=== PATIENT | female | born 1980 | race Caucasian/White ===

== ENCOUNTER → 2018-01-07 | Outpatient (CLI) | payer MEDICAID | LOC: FCPNEURO 21:00 | PROVIDERS: ATTEND Student in an Organized Health Care Education/Training Program | DX: G47.10 Hypersomnia, unspecified (principal) ==

== ENCOUNTER → 2018-01-24 | Outpatient (CLI) | payer MEDICAID ==
--- NOTE | 2018-01-25 12:04 | CPEEG ---
[f rep st] ELECTROENCEPHALOGRAM ROUTINE ELECTROENCEPHALOGRAM. DATE OF STUDY: 01/24/2018 INTERPRETATION: Normal EEG during wakefulness and sleep. There were no potentially epileptogenic ab normalities present during the recording. REPORT: This EEG contains 10 Hz alpha activity to the posterior head regions. There was no abnormal activation at rest, during photic stimulation or hyperventilation. The patient became drowsy and fe ll asleep during the study. There was no abnormal activation during drowsiness, sleep, or during olivia es of arousal. /[id number]/MODL
== END ==
LOC: FCPNEURO 15:07
PROVIDERS: ATTEND Student in an Organized Health Care Education/Training Program
DX: R94.01 Abnormal electroencephalogram [EEG] (principal)